=== PATIENT | male | born 1990 | race Caucasian/White ===

== ENCOUNTER 2018-09-14 03:59 | Emergency (ER) | payer SELFPAY ==
[~2018-09-14] VITALS: Ht 177.8 cm; Wt 95.3 kg
--- NOTE | 2018-09-14 03:59 | NUR ---
PT LISA ALS. TAKEN TO BED 2
--- NOTE | 2018-09-14 04:00 | NUR ---
Dr. Batres evaluating patient at bedside.
[2018-09-14 04:01] VITALS: BP 95/49
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
[2018-09-14] MEDS ORDERED: NACL 0.9% 1,000 ML IV ONE ×2 (04:40→05:50)
--- NOTE | 2018-09-14 05:41 | NUR ---
PT IS SLEEPING DEEPLY. VSS. AROUSABLE TO PAIN. SKIN PINK, WARM, DRY. BREATHING EVEN, UNLABORED.
--- NOTE | 2018-09-14 06:25 | NUR ---
PT AWOKE TO PAINFUL STIMULI. PT A/O X4 WITH REORIENTATION. VSS. ORDERED BREAKFAST TRAY.
--- NOTE | 2018-09-14 07:15 | NUR ---
PT LEFT WITHOUT DISCHARGE INSTRUCTIONS. LAST SET V/S STABLE. PT WAS NOT OBSERVED LEAVING ER. Addendum: 09/14/18 at 714 by LÓPEZ IV WAS D/C'D. Addendum: 09/14/18 at 16 by LÓPEZ PT RECEIVED VERBAL DISCHARGE INSTRUCTIONS BEFORE SIGNING.
[2018-09-14 07:16] VITALS: BP 98/49
--- NOTE | 2018-09-16 12:02 | NUR ---
Late entry. Confirmed with RN that 0.9 NS IV bolus 1000 ml completed at 0650 prior to patient elopement.
== END 2018-09-14 07:15 | disposition home or self-care (01) ==
LOC: EDBD 03:59 → MED 03:59
DX: F10.129 Alcohol abuse with intoxication, unspecified (principal)
CPT/HCPCS: 99283; J7030